=== PATIENT | male | born 1940 | race American Indian/Alaskan Native ===

== ENCOUNTER 2017-03-21 16:43 | Inpatient (IN) | payer MEDICARE, MEDICAID ==
[2017-03-21] MEDS ORDERED: Docusate Sodium 100 MG Cap PO PRN (17:42)
[2017-03-21] MEDS ORDERED: Ondansetron 4 MG/2 ML SDV IVPUSH PRN (17:42)
[2017-03-21] MEDS ORDERED: Acetaminophen 325 MG Tab PO PRN (17:42)
--- NOTE | 2017-03-21 17:52 | PCM.HP ---
H&P History of Present Illness - General Date of Service: 03/21/17 Admit Problem/Dx: Admission Diagnosis/Problem Admission Diagnosis/Problem Cellulitis - History of Present Illness Initial Comments - Free Text/Narative: 77 yo M with h/o htn, dm, dyslipidemia On the day of admission the patient went for a regular follow-up appointment for diabetes. He was noted to have a right lower extremity swelling associated with redness, foul, smelling, draining, superficial wounds. The patient denies fever, no chest pain, shortness of breath. He has been feeling generally weak. His blood sugars are usually in the 200s. - Related Data Allergies/Adverse Reactions: Allergies Allergy/AdvReac Type Severity Reaction Status Date / Time No Known Allergies Allergy Verified 03/21/17 17:31 Home Medications: Home Meds Aspirin [Halfprin] 81 mg PO 1800 03/21/17 [History] Hydrochlorothiazide 50 mg PO BEDTIME 03/21/17 [History] Hydrocortisone [Hydrocortisone 1% Crm] 1 applic TOP DAILY PRN 03/21/17 [History] Lisinopril 40 mg PO 1800 03/21/17 [History] Saxagliptin HCl [Onglyza] 5 mg PO 1800 03/21/17 [History] atorvaSTATin Calcium [Atorvastatin Calcium] 20 mg PO 1800 03/21/17 [History] metFORMIN HCl [Metformin HCl] 1,000 mg PO BID 03/21/17 [History] Past Medical History HEENT History: Reports: Cataract, Glaucoma, Other (See Below) Other HEENT History: presbyopia; astigmatism; hypermetropia; Cardiovascular History: Reports: High Cholesterol, Hypertension Musculoskeletal History: Reports: Osteoarthritis Endocrine/Metabolic History: Reports: Diabetes, Type II, Obesity/BMI 30+ Social & Family History - Family History Family Medical History: Unobtainable - Tobacco Use Smoking Status *Q: Former Smoker Used Tobacco, but Quit: Yes Month Tobacco Last Used: feb 2017 - Caffeine Use Caffeine Use: Reports: Coffee - Recreational Drug Use Recreational Drug Use: No H&P Review of Systems - Review of Systems: Review Of Systems: See Below General: Reports: Chills, Weakness, Fatigue. Denies: Fever Pulmonary: Denies: Shortness of Breath Gastrointestinal: Denies: Abdominal Pain Musculoskeletal: Reports: Leg Pain (Right side) Exam - Exam Exam: See Below - Vital Signs Vital Signs: Last Vital Signs Temp 36.9 C 03/21/17 17:00 Pulse 87 03/21/17 17:00 Resp 20 03/21/17 17:00 BP 124/56 L 03/21/17 17:00 Pulse Ox 100 03/21/17 17:00 Weight: 115.212 kg - Exam Quality Assessment: Other (dirty, poor hygiene) General: Alert, Oriented Neck: Supple Lungs: Clear to Auscultation, Normal Respiratory Effort Cardiovascular: Regular Rate, Regular Rhythm GI/Abdominal Exam: Normal Bowel Sounds, Soft, Non-Tender Back Exam: Normal Inspection Extremities: Pedal Edema (Right lower extremity trace edema), Increased Warmth ( Right lower extremity) Skin: Other (Right lower extremity with diffuse draining superficial ulcerations , large area) - Patient Data Lab Results Last 24 hrs: Laboratory Results - last 24 hr 03/21/17 Range/Units 17:23 POC Glucose 190 H (83-110) mg/dl Laboratory studies were reviewed from [facility] Glucose 232, BUN/creatinine 53, creatinine 2.5, sodium 138, potassium 4.7 Hemoglobin A1c 8.7 wbc 12.3 hemoglobin 11.3, platelets 357 *Q Meaningful Use (ADM) - VTE *Q VTE Criteria *Q: - Stroke *Q Stroke Criteria *Q: - AMI *Q AMI Criteria *Q: - Problem List (1) Cellulitis SNOMED Code(s): 828273345 ICD Code: L03.90 - CELLULITIS, UNSPECIFIED Status: Acute Current Visit: Yes (2) Acute renal failure SNOMED Code(s): 12841346 ICD Code: N17.9 - ACUTE KIDNEY FAILURE, UNSPECIFIED Status: Acute Current Visit: Yes (3) Diabetes SNOMED Code(s): 43874793 ICD Code: E11.9 - TYPE 2 DIABETES MELLITUS WITHOUT COMPLICATIONS Status: Acute Current Visit: Yes (4) Hypertension SNOMED Code(s): 05779585 ICD Code: I10 - ESSENTIAL (PRIMARY) HYPERTENSION Status: Acute Current Visit: Yes Problem List Initiated/Reviewed/Updated: Yes Orders Last 24hrs: Active Orders 24 hr Category Date Time Status Patient Status [ADT] Routine ADT 03/21/17 17:42 Ordered Ambulate [RC] PER UNIT ROUTINE Care 03/21/17 17:43 Ordered Glucose [Blood Glucose Check, Bedside] [RC] QIDACANDBED Care 03/21/17 17:40 Ordered Notify Provider Consults [RC] ASDIRECTED Care 03/21/17 17:39 Ordered Oxygen Therapy [RC] PRN Care 03/21/17 17:42 Ordered Up With Assistance [RC] ASDIRECTED Care 03/21/17 17:42 Ordered VTE/DVT Education [RC] PER UNIT ROUTINE Care 03/21/17 17:42 Ordered Vital Signs [RC] Q4H Care 03/21/17 17:42 Ordered Wound Care [RC] BID Care 03/21/17 17:41 Ordered Consult to Physician [CONS] Routine Cons 03/21/17 17:39 Ordered Consistent Carbohydrate Diet [DIET] Diet 03/21/17 Breakfast Ordered BASIC METABOLIC PANEL,BMP [CHEM] AM Lab 03/22/17 05:15 Ordered CBC WITH AUTO DIFF [HEME] AM Lab 03/22/17 05:15 Ordered CULTURE BLOOD [BC] Stat Lab 03/21/17 17:44 Ordered CULTURE BLOOD [BC] Stat Lab 03/21/17 17:44 Ordered CULTURE WOUND [RM] Stat Lab 03/21/17 17:42 Uncollected Acetaminophen [Tylenol] Med 03/21/17 17:42 Ordered 650 mg PO Q4H PRN Acetaminophen/HYDROcodone [[place] 325-10 MG] Med 03/21/17 17:42 Ordered 1 tab PO Q4H PRN Aspirin [Halfprin] Med 03/21/17 18:00 Ordered 81 mg PO 1800 Docusate Sodium [Colace] Med 03/21/17 17:42 Ordered 100 mg PO BID PRN Heparin Sodium Med 03/21/17 22:00 Ordered 5,000 units SUBCUT Q8HR Insulin Aspart [NovoLOG] Med 03/22/17 08:00 Ordered See Protocol SUBCUT TIDAC Ondansetron [Zofran] Med 03/21/17 17:42 Ordered 4 mg IVPUSH Q6H PRN Piperacillin/Tazobactam [Zosyn] 2.25 gm Med 03/21/17 17:45 Ordered Sodium Chloride 0.9% [Normal Saline] 50 ml IV Q6H Vancomycin Pharmacy to Dose [Pharmacy to Dose - Med 03/21/17 17:45 Ordered Vancomycin] 1 dose .XX ASDIRECTED Zolpidem [Ambien] Med 03/21/17 17:42 Ordered 5 mg PO BEDTIME PRN atorvaSTATin [Lipitor] Med 03/21/17 18:00 Ordered 20 mg PO 1800 Blood Culture x2 Reflex Set [OM.PC] Stat Oth 03/21/17 17:42 Ordered Resuscitation Status Routine Resus Stat 03/21/17 17:42 Ordered Medication Orders Acetaminophen (Tylenol) 650 mg PO Q4H PRN PRN Reason: Pain (Mild 1-3)/fever Hydrocodone Bitart/Acetaminophen ([place] 325-10 Mg) 1 tab PO Q4H PRN PRN Reason: Pain (moderate 4-6) Aspirin (Halfprin) 81 mg PO 1800 [facility] Atorvastatin Calcium (Lipitor) 20 mg PO 1800 [facility] Piperacillin Sod/Tazobactam (Sod 2.25 gm/ Sodium Chloride) 50 mls @ 100 mls/hr IV Q6H [facility] Insulin Aspart (Novolog) 0 unit SUBCUT TIDAC [facility] PRN Reason: Protocol Vancomycin HCl (Pharmacy To Dose - Vancomycin) 1 dose .XX ASDIRECTED [facility] Assessment/Plan Comment:: The patient is a 77-year-old gentleman who has a history of diabetes, hypertension, dyslipidemia The patient presented with foul-smelling right foot ulcers, redness, swelling. 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 Follow electrolytes and renal function #3 diabetes Due to poor renal function will hold metformin Follow blood sugars use supplemental insulin as needed Start Levemir insulin Adjust depending on the blood sugars #4 hypertension For now hold CAYLA inhibitor and hydrochlorothiazide given the renal failure Follow blood pressures and start medications and adjust as needed #5 DVT prophylaxis with subcutaneous heparin
[2017-03-21] MEDS: Acetaminophen/HYDROcodone 325-10 MG Tab PO PRN ×2 (18:19→22:28)
[2017-03-21] MEDS: Sodium Chloride 0.9% 1,000 ML IV SCH (18:21)
[2017-03-21] MEDS: Piperacillin/Tazobactam 2.25 GM in Sodium Chloride 0.9% 50 ML IV SCH ×2 (18:34→23:41)
[2017-03-21] MEDS: Insulin Aspart 100 Units/ML 3 ML Pen SUBCUT SCH (18:38)
[2017-03-21] MEDS ORDERED: Vancomycin 1.75 GM in Sodium Chloride 0.9% 500 ML IV ONE (20:00)
[2017-03-21] MEDS: Aspirin 81 MG Tab.EC PO SCH (20:33)
[2017-03-21] MEDS: atorvaSTATin 20 MG Tab PO SCH (20:33)
[2017-03-21] MEDS: Heparin Sodium 5,000 Units/ML Vial SUBCUT SCH (22:13)
[2017-03-21] MEDS: Zolpidem 5 MG Tab PO PRN (22:14)
[2017-03-22] MEDS: Piperacillin/Tazobactam 2.25 GM in Sodium Chloride 0.9% 50 ML IV SCH ×4 (05:36→23:23)
[2017-03-22] MEDS: Heparin Sodium 5,000 Units/ML Vial SUBCUT SCH ×3 (05:40→21:08)
[2017-03-22 06:57] LABS: ANION GAP 11.2
[2017-03-22] MEDS: Insulin Aspart 100 Units/ML 3 ML Pen SUBCUT SCH ×3 (08:40→17:22)
[2017-03-22] MEDS: Vancomycin 1.75 GM in Sodium Chloride 0.9% 500 ML IV SCH ×2 (08:59→21:08)
[2017-03-22] MEDS: Sodium Chloride 0.9% 1,000 ML IV SCH (11:06)
--- NOTE | 2017-03-22 12:45 | PCM.PN ---
- General Info Date of Service: 03/22/17 Admission Dx/Problem (Free Text): Admission Diagnosis/Problem Admission Diagnosis/Problem Cellulitis Subjective Update: Remained stable overnight. Only had low-grade fever. The leg is looking better with the dressing changes. Has moderate right leg pain that has been chronic. Functional Status: Reports: Tolerating Diet - Review of Systems General: Reports: Fever Pulmonary: Denies: Shortness of Breath Cardiovascular: Denies: Chest Pain Gastrointestinal: Denies: Abdominal Pain - Patient Data Vitals - Most Recent: Last Vital Signs Temp 37.6 C 03/22/17 11:06 Pulse 82 03/22/17 11:06 Resp 20 03/22/17 11:06 BP 134/55 L 03/22/17 11:06 Pulse Ox 100 03/22/17 11:06 Weight - Most Recent: 115.212 kg I&O - Last 24 Hours: Intake & Output 03/21/17 03/22/17 03/22/17 22:59 06:59 14:59 Intake Total 300 1454 727 Output Total 440 750 500 Balance -140 704 227 Lab Results Last 24 Hours: Laboratory Results - last 24 hr 03/21/17 03/21/17 03/22/17 Range/Units 17:23 21:17 06:15 WBC 13.2 H (5.0-10.0) 10^3/uL RBC 3.51 L (4.6-6.2) 10^6/uL Hgb 10.3 L (14.0-18.0) g/dL Hct 31.6 L (40.0-54.0) % MCV 90.0 (80-100) fL MCH 29.3 (27.0-34.0) pg MCHC 32.6 L (33.0-35.0) g/dL Plt Count 299 (150-450) 10^3/uL Neut % (Auto) 71.0 (42.2-75.2) % Lymph % (Auto) 17.5 L (20.5-50.1) % [place] % (Auto) 8.6 H (2-8) % Eos % (Auto) 2.7 (1.0-3.0) % Baso % (Auto) 0.2 (0.0-1.0) % Sodium (135-145) mmol/L Potassium (3.6-5.0) mmol/L Chloride (101-111) mmol/L Carbon Dioxide (21.0-31.0) mmol/L Anion Gap BUN (7-18) mg/dL Creatinine (0.6-1.3) mg/dL Est Cr Clr Drug Dosing mL/min Estimated GFR (MDRD) Glucose (74-105) mg/dL POC Glucose 190 H 191 H (83-110) mg/dl Calcium (8.4-10.2) mg/dl 03/22/17 03/22/17 03/22/17 Range/Units 06:15 07:49 11:01 WBC (5.0-10.0) 10^3/uL RBC (4.6-6.2) 10^6/uL Hgb (14.0-18.0) g/dL Hct (40.0-54.0) % MCV (80-100) fL MCH (27.0-34.0) pg MCHC (33.0-35.0) g/dL Plt Count (150-450) 10^3/uL Neut % (Auto) (42.2-75.2) % Lymph % (Auto) (20.5-50.1) % [place] % (Auto) (2-8) % Eos % (Auto) (1.0-3.0) % Baso % (Auto) (0.0-1.0) % Sodium 138 (135-145) mmol/L Potassium 4.2 (3.6-5.0) mmol/L Chloride 106 (101-111) mmol/L Carbon Dioxide 25.0 (21.0-31.0) mmol/L Anion Gap 11.2 BUN 39 H (7-18) mg/dL Creatinine 1.5 H (0.6-1.3) mg/dL Est Cr Clr Drug Dosing 54.16 mL/min Estimated GFR (MDRD) 46 Glucose 177 H (74-105) mg/dL POC Glucose 173 H 234 H (83-110) mg/dl Calcium 8.6 (8.4-10.2) mg/dl Med Orders - Current: Current Medications Acetaminophen (Tylenol) 650 mg PO Q4H PRN PRN Reason: Pain (Mild 1-3)/fever Hydrocodone Bitart/Acetaminophen ([place] 325-10 Mg) 1 tab PO Q4H PRN PRN Reason: Pain (moderate 4-6) Last Admin: 03/21/17 22:28 Dose: 1 tab Aspirin (Halfprin) 81 mg PO 1800 [facility] Last Admin: 03/21/17 20:33 Dose: 81 mg Atorvastatin Calcium (Lipitor) 20 mg PO 1800 [facility] Last Admin: 03/21/17 20:33 Dose: 20 mg Docusate Sodium (Colace) 100 mg PO BID PRN PRN Reason: Constipation Heparin Sodium (Porcine) (Heparin Sodium) 5,000 units SUBCUT Q8HR [facility] Last Admin: 03/22/17 05:40 Dose: 5,000 units Piperacillin Sod/Tazobactam (Sod 2.25 gm/ Sodium Chloride) 50 mls @ 100 mls/hr IV Q6H [facility] Last Infusion: 03/22/17 12:34 Dose: Infused Sodium Chloride (Normal Saline) 1,000 mls @ 75 mls/hr IV ASDIRECTED [facility] Last Admin: 03/22/17 11:06 Dose: 75 mls/hr Vancomycin HCl 1.75 gm/ Sodium (Chloride) 500 mls @ 250 mls/hr IV Q12H [facility] Last Admin: 03/22/17 08:59 Dose: 250 mls/hr Insulin Aspart (Novolog) 0 unit SUBCUT TIDAC [facility] PRN Reason: Protocol Last Admin: 03/22/17 12:25 Dose: 4 units Ondansetron HCl (Zofran) 4 mg IVPUSH Q6H PRN PRN Reason: Nausea/Vomiting Vancomycin HCl (Pharmacy To Dose - Vancomycin) 1 dose .XX ASDIRECTED [facility] Zolpidem Tartrate (Ambien) 5 mg PO BEDTIME PRN PRN Reason: Sleep Last Admin: 03/21/17 22:14 Dose: 5 mg Discontinued Medications Vancomycin HCl 1.75 gm/ Sodium (Chloride) 500 mls @ 250 mls/hr IV ONETIME ONE Stop: 03/21/17 21:59 Last Admin: 03/21/17 20:30 Dose: 250 mls/hr - Exam General: Alert, Oriented Neck: Supple Lungs: Clear to Auscultation, Normal Respiratory Effort GI/Abdominal Exam: Normal Bowel Sounds, Soft, Non-Tender Extremities: Pedal Edema ([place] right lower extremity) Skin: Warm, Other (Right lower extremity erythema and superficial ulcerations) - Problem List & Annotations (1) Cellulitis SNOMED Code(s): 653296194 Code(s): L03.90 - CELLULITIS, UNSPECIFIED Status: Acute Current Visit: Yes (2) Acute renal failure SNOMED Code(s): 17602348 Code(s): N17.9 - ACUTE KIDNEY FAILURE, UNSPECIFIED Status: Acute Current Visit: Yes (3) Diabetes SNOMED Code(s): 47983923 Code(s): E11.9 - TYPE 2 DIABETES MELLITUS WITHOUT COMPLICATIONS Status: Acute Current Visit: Yes (4) Hypertension SNOMED Code(s): 92879024 Code(s): I10 - ESSENTIAL (PRIMARY) HYPERTENSION Status: Acute Current Visit: Yes - Problem List Review Problem List Initiated/Reviewed/Updated: Yes - My Orders Last 24 Hours: My Active Orders 03/21/17 17:39 Notify Provider Consults [RC] Consult to Physician [CONS] Routine 03/21/17 17:40 Glucose [Blood Glucose Check, Bedside] [RC] QIDACANDBED 03/21/17 17:41 Wound Care [RC] 03/21/17 17:42 Patient Status [ADT] Routine Oxygen Therapy [RC] PRN Up With Assistance [RC] ASDIRECTED VTE/DVT Education [RC] PER UNIT ROUTINE Vital Signs [RC] Q4H Acetaminophen [Tylenol] 650 mg PO Q4H PRN Acetaminophen/HYDROcodone [[place] 325-10 MG] 1 tab PO Q4H PRN Docusate Sodium [Colace] 100 mg PO BID PRN Ondansetron [Zofran] 4 mg IVPUSH Q6H PRN Zolpidem [Ambien] 5 mg PO BEDTIME PRN Blood Culture x2 Reflex Set [OM.PC] Stat Resuscitation Status Routine 03/21/17 17:43 Ambulate [RC] PER UNIT ROUTINE 03/21/17 17:45 Insulin Aspart [NovoLOG] See Protocol SUBCUT TIDAC Vancomycin Pharmacy to Dose [Pharmacy to Dose - Vancomycin] 1 dose .XX ASDIRECTED 03/21/17 18:00 Aspirin [Halfprin] 81 mg PO 1800 Piperacillin/Tazobactam [Zosyn] 2.25 gm Sodium Chloride 0.9% [Normal Saline] 50 ml IV Q6H atorvaSTATin [Lipitor] 20 mg PO 1800 03/21/17 18:10 CULTURE BLOOD [BC] Stat 03/21/17 18:14 CULTURE BLOOD [BC] Stat 03/21/17 18:15 Sodium Chloride 0.9% [Normal Saline] 1,000 ml IV ASDIRECTED 03/21/17 18:30 CULTURE WOUND [RM] Stat 03/21/17 22:00 Heparin Sodium 5,000 units SUBCUT Q8HR 03/22/17 09:00 Vancomycin 1.75 gm Sodium Chloride 0.9% [Normal Saline] 500 ml IV Q12H 03/22/17 11:27 OT Evaluation and Treatment [CONS] Routine PT Evaluation and Treatment [CONS] Routine - Plan Plan:: The patient is a 77-year-old gentleman who has a history of diabetes, hypertension, dyslipidemia The patient presented with foul-smelling right foot ulcers, redness, swelling. 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 Follow electrolytes and renal function #3 diabetes Due to poor renal function will hold metformin Follow blood sugars use supplemental insulin as needed Started Levemir insulin Adjust depending on the blood sugars #4 hypertension For now hold CAYLA inhibitor and hydrochlorothiazide given the renal failure Follow blood pressures and start medications and adjust as needed #5 DVT prophylaxis with subcutaneous heparin
--- NOTE | 2017-03-22 16:50 | CR ---
Clinical history: 77-year-old diabetic male with right lower extremity ulcer (distally and laterally) . Osteomyelitis? 4 views of the right lower extremity (AP/lateral) reveal generally homogeneous, good bone density for age. *Soft tissue swelling laterally with subcutaneous emphysema but no evidence of inflammatory per iostitis or osteomyelitis of the distal fibula. No long bone fractures, foreign bodies of fracture or disc location of the right knee/ankle joints. ( chronic arthritic changes) Arterial vascular calcifications typical of diabetic. Large heel spurs identified respectively at the insertion of the plantar aponeurosis and Achilles ten don on the os calcis.
--- NOTE | 2017-03-22 17:16 | PCM.CONS ---
H&P History of Present Illness - General Date of Service: 03/22/17 Admit Problem/Dx: Admission Diagnosis/Problem Admission Diagnosis/Problem Cellulitis Source of Information: Patient History Limitations: Reports: No Limitations - History of Present Illness Initial Comments - Free Text/Narative: 77 y/o DM male admitted for right foot/lower leg ulcerations with cellulitis. Patient states he hit the ankle area on something last month and it broke open the skin, since that time he has noticed increased redness and also drainage to the right foot/ankle area. He has not been putting any dressings on the area, but has been using lotion every day, this has been since before . He noticed worsening of the redness and also odor, pain with walking. Right Ankle Pain Score (Numeric/FACES): 4 - Related Data Allergies/Adverse Reactions: Allergies Allergy/AdvReac Type Severity Reaction Status Date / Time No Known Allergies Allergy Verified 03/21/17 17:31 Home Medications: Home Meds Aspirin [Halfprin] 81 mg PO 1800 03/21/17 [History] Hydrochlorothiazide 50 mg PO BEDTIME 03/21/17 [History] Hydrocortisone [Hydrocortisone 1% Crm] 1 applic TOP DAILY PRN 03/21/17 [History] Lisinopril 40 mg PO 1800 03/21/17 [History] Saxagliptin HCl [Onglyza] 5 mg PO 1800 03/21/17 [History] atorvaSTATin Calcium [Atorvastatin Calcium] 20 mg PO 1800 03/21/17 [History] metFORMIN HCl [Metformin HCl] 1,000 mg PO BID 03/21/17 [History] Past Medical History HEENT History: Reports: Cataract, Glaucoma, Other (See Below) Other HEENT History: presbyopia; astigmatism; hypermetropia; Cardiovascular History: Reports: High Cholesterol, Hypertension Musculoskeletal History: Reports: Osteoarthritis Endocrine/Metabolic History: Reports: Diabetes, Type II, Obesity/BMI 30+ Social & Family History - Family History Family Medical History: Unobtainable - Tobacco Use Smoking Status *Q: Former Smoker Used Tobacco, but Quit: Yes Month Tobacco Last Used: feb 2017 - Caffeine Use Caffeine Use: Reports: Coffee - Recreational Drug Use Recreational Drug Use: No H&P Review of Systems - Review of Systems: Review Of Systems: See Below General: Reports: No Symptoms Exam - Exam Exam: See Below - Vital Signs Vital Signs: Last Vital Signs Temp 37.3 C 03/22/17 14:22 Pulse 80 03/22/17 14:22 Resp 20 03/22/17 14:22 BP 138/71 03/22/17 14:22 Pulse Ox 98 03/22/17 14:22 Weight: 115.212 kg - Exam General: Alert, Oriented Physical Exam Comments:: Right lower extremity: multiple areas of superficial ulcerations present with a large area of boggy tissue at lateral malleolus area and extending proximally and posteriorly, upon pressure to the area there was a large amount of purulent drainage that was expressed, the necrotic/fibrotic tissue overlying this area was debrided and upon debridement there was healthy appearing tissue at the base , however also an area that tracked proximally and into the kagers triangle area that did have purulent drainage expressed. The debrided area measures 6 x 4 cm, the edges area well demarcated with dried necrotic tissue which did not appear wet today, there is also some dry necrotic tissue that extends up the lateral lower leg. No other areas of boggy tissue or soft tissue crepitus was palpated. Erythema was present to ankle and lower leg that was marked out today. - Patient Data Lab Results Last 24 hrs: Laboratory Results - last 24 hr 03/21/17 03/21/17 03/22/17 Range/Units 17:23 21:17 06:15 WBC 13.2 H (5.0-10.0) 10^3/uL RBC 3.51 L (4.6-6.2) 10^6/uL Hgb 10.3 L (14.0-18.0) g/dL Hct 31.6 L (40.0-54.0) % MCV 90.0 (80-100) fL MCH 29.3 (27.0-34.0) pg MCHC 32.6 L (33.0-35.0) g/dL Plt Count 299 (150-450) 10^3/uL Neut % (Auto) 71.0 (42.2-75.2) % Lymph % (Auto) 17.5 L (20.5-50.1) % [place] % (Auto) 8.6 H (2-8) % Eos % (Auto) 2.7 (1.0-3.0) % Baso % (Auto) 0.2 (0.0-1.0) % Sodium (135-145) mmol/L Potassium (3.6-5.0) mmol/L Chloride (101-111) mmol/L Carbon Dioxide (21.0-31.0) mmol/L Anion Gap BUN (7-18) mg/dL Creatinine (0.6-1.3) mg/dL Est Cr Clr Drug Dosing mL/min Estimated GFR (MDRD) Glucose (74-105) mg/dL POC Glucose 190 H 191 H (83-110) mg/dl Calcium (8.4-10.2) mg/dl 03/22/17 03/22/17 03/22/17 Range/Units 06:15 07:49 11:01 WBC (5.0-10.0) 10^3/uL RBC (4.6-6.2) 10^6/uL Hgb (14.0-18.0) g/dL Hct (40.0-54.0) % MCV (80-100) fL MCH (27.0-34.0) pg MCHC (33.0-35.0) g/dL Plt Count (150-450) 10^3/uL Neut % (Auto) (42.2-75.2) % Lymph % (Auto) (20.5-50.1) % [place] % (Auto) (2-8) % Eos % (Auto) (1.0-3.0) % Baso % (Auto) (0.0-1.0) % Sodium 138 (135-145) mmol/L Potassium 4.2 (3.6-5.0) mmol/L Chloride 106 (101-111) mmol/L Carbon Dioxide 25.0 (21.0-31.0) mmol/L Anion Gap 11.2 BUN 39 H (7-18) mg/dL Creatinine 1.5 H (0.6-1.3) mg/dL Est Cr Clr Drug Dosing 54.16 mL/min Estimated GFR (MDRD) 46 Glucose 177 H (74-105) mg/dL POC Glucose 173 H 234 H (83-110) mg/dl Calcium 8.6 (8.4-10.2) mg/dl 03/22/17 Range/Units 16:48 WBC (5.0-10.0) 10^3/uL RBC (4.6-6.2) 10^6/uL Hgb (14.0-18.0) g/dL Hct (40.0-54.0) % MCV (80-100) fL MCH (27.0-34.0) pg MCHC (33.0-35.0) g/dL Plt Count (150-450) 10^3/uL Neut % (Auto) (42.2-75.2) % Lymph % (Auto) (20.5-50.1) % [place] % (Auto) (2-8) % Eos % (Auto) (1.0-3.0) % Baso % (Auto) (0.0-1.0) % Sodium (135-145) mmol/L Potassium (3.6-5.0) mmol/L Chloride (101-111) mmol/L Carbon Dioxide (21.0-31.0) mmol/L Anion Gap BUN (7-18) mg/dL Creatinine (0.6-1.3) mg/dL Est Cr Clr Drug Dosing mL/min Estimated GFR (MDRD) Glucose (74-105) mg/dL POC Glucose 224 H (83-110) mg/dl Calcium (8.4-10.2) mg/dl Result Diagrams: 03/22/17 06:15 03/22/17 06:15 Imaging Impressions Last 24 hrs: Xrays of right LE today reveals wound at lateral and posterior ankle which was packed open, no evidence of gas in soft tissues, inflammatory periostitis, osteo. Calcified vessels present. Consult PN Assessment/Plan Problem List Initiated/Reviewed/Updated: Yes Plan: 77 y/o DM male with right LE ulcerations and cellulitis. Today I cleansed the right ankle/leg throughly with hibacleanse scrub, I then debrided the wet, necrotic appearing tissue to lateral ankle that had underling purulent drainage , all loose, wet, necrotic tissue was debrided today and irrigated clean to reveal nice granular tissue underlying. There was an area that tracked proximal/ posterior that was also debrided and irrigated with copious amounts of sterile saline until no purulent drainage was able to be expressed, this was then packed open with iodoform gauze. Silvasorb with xeroform dressing applied to granular areas, betadine to dry demarcated areas, gauze and kerlex dressing. He is on IV vanc and zosyn until cultures return. Xrays performed tonight to ensure no gas in soft tissues. I also marked out the area of erythema with marking pen tonight. I will check him again in the AM, if no improvement then may send him to GF, otherwise will plan on irrigation again tomorrow with packing and wound care. WB to Right foot as tolerated.
[2017-03-22] MEDS: atorvaSTATin 20 MG Tab PO SCH (17:22)
[2017-03-22] MEDS: Aspirin 81 MG Tab.EC PO SCH (17:22)
[2017-03-22] MEDS: Zolpidem 5 MG Tab PO PRN (21:08)
[2017-03-22] MEDS: Acetaminophen/HYDROcodone 325-10 MG Tab PO PRN (21:08)
[2017-03-23] MEDS: Heparin Sodium 5,000 Units/ML Vial SUBCUT SCH (05:38)
[2017-03-23] MEDS: Piperacillin/Tazobactam 2.25 GM in Sodium Chloride 0.9% 50 ML IV SCH ×2 (05:39→13:43)
[2017-03-23 09:15] LABS: CHLORIDE,CL 105 mmol/L (101-111); SODIUM,NA 137 mmol/L (135-145)
[2017-03-23] MEDS: Insulin Aspart 100 Units/ML 3 ML Pen SUBCUT SCH ×2 (09:29→12:39)
--- NOTE | 2017-03-23 09:40 | PCM.DCSUM1 ---
Discharge Summary - Hospital Course Free Text/Narrative:: The patient is a 77-year-old gentleman who has a history of diabetes, hypertension, dyslipidemia The patient presented with foul-smelling right foot ulcers, redness, swelling. 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 Kolb She did incision and the bride went, packing. She felt that the wound and abscess collection is tracking higher than what podiatry can work on. She recommended orthopedic surgery consult I have contacted [facility] in [place] and arranged transfer #2 acute renal failure Creatinine on admission was 1.5 Improved with IV fluids Apparently his last GFR was around 57-60 in February Continue to hold the CAYLA inhibitor, metformin Was treated with IV fluids, treat the infection. Follow electrolytes and renal function #3 diabetes Due to poor renal function will hold metformin Follow blood sugars use supplemental insulin as needed Started Levemir insulin Adjust depending on the blood sugars #4 hypertension For now hold CAYLA inhibitor and hydrochlorothiazide given the renal failure Follow blood pressures and start medications and adjust as needed #5 DVT prophylaxis with subcutaneous heparin - Discharge Data Discharge Date: 03/23/17 Discharge Disposition: DC/Tfer to Acute Hospital 02 Condition: Good - Discharge Diagnosis/Problem(s) (1) Cellulitis SNOMED Code(s): 215037404 ICD Code: L03.90 - CELLULITIS, UNSPECIFIED Status: Acute Current Visit: Yes (2) Acute renal failure SNOMED Code(s): 93405702 ICD Code: N17.9 - ACUTE KIDNEY FAILURE, UNSPECIFIED Status: Acute Current Visit: Yes (3) Diabetes SNOMED Code(s): 03200277 ICD Code: E11.9 - TYPE 2 DIABETES MELLITUS WITHOUT COMPLICATIONS Status: Acute Current Visit: Yes (4) Hypertension SNOMED Code(s): 85956778 ICD Code: I10 - ESSENTIAL (PRIMARY) HYPERTENSION Status: Acute Current Visit: Yes - Patient Summary/Data Consults: Consultations 03/21/17 17:39 Consult to Physician [CONS] Routine 03/22/17 11:27 OT Evaluation and Treatment [CONS] Routine PT Evaluation and Treatment [CONS] Routine - Patient Instructions Diet: Diabetic Diet Activity: As Tolerated - Discharge Plan Home Medications: Home Meds Aspirin [Halfprin] 81 mg PO 1800 03/21/17 [History] Saxagliptin HCl [Onglyza] 5 mg PO 1800 03/21/17 [History] atorvaSTATin Calcium [Atorvastatin Calcium] 20 mg PO 1800 03/21/17 [History] Acetaminophen [Tylenol] 650 mg PO Q4H PRN tablet 03/23/17 [Rx] Docusate Sodium [Colace] 100 mg PO BID PRN cap 03/23/17 [Rx] Heparin Sodium 5,000 units SUBCUT Q8HR vial 03/23/17 [Rx] Insulin Aspart [NovoLOG] 0 unit SUBCUT TIDAC pen 03/23/17 [Rx] Vancomycin Pharmacy to Dose [Pharmacy to Dose - Vancomycin] 1 dose .XX ASDIRECTED each 03/23/17 [Rx] - Discharge Summary/Plan Comment DC Time >30 min.: Yes (Arranging transfer and discussion with Dr. Kolb) - General Info Date of Service: 03/23/17 Subjective Update: Remained stable overnight. Continue to have low-grade fever. - Review of Systems General: Reports: Fever Pulmonary: Denies: Shortness of Breath Cardiovascular: Denies: Chest Pain Gastrointestinal: Denies: Abdominal Pain Neurological: Denies: Confusion - Patient Data Vitals - Most Recent: Last Vital Signs Temp 38.1 C 03/22/17 19:00 Pulse 96 03/22/17 19:00 Resp 18 03/22/17 19:00 BP 115/61 03/22/17 19:00 Pulse Ox 94 L 03/22/17 19:00 Weight - Most Recent: 115.212 kg I&O - Last 24 hours: Intake & Output 03/22/17 03/23/17 03/23/17 22:59 06:59 14:59 Intake Total 475 Output Total 400 600 Balance 75 -600 Lab Results - Last 24 hrs: Laboratory Results - last 24 hr 03/22/17 03/22/17 03/22/17 Range/Units 11:01 16:48 21:32 WBC (5.0-10.0) 10^3/uL RBC (4.6-6.2) 10^6/uL Hgb (14.0-18.0) g/dL Hct (40.0-54.0) % MCV (80-100) fL MCH (27.0-34.0) pg MCHC (33.0-35.0) g/dL Plt Count (150-450) 10^3/uL Neut % (Auto) (42.2-75.2) % Lymph % (Auto) (20.5-50.1) % [place] % (Auto) (2-8) % Eos % (Auto) (1.0-3.0) % Baso % (Auto) (0.0-1.0) % Sodium (135-145) mmol/L Potassium (3.6-5.0) mmol/L Chloride (101-111) mmol/L Carbon Dioxide (21.0-31.0) mmol/L Anion Gap BUN (7-18) mg/dL Creatinine (0.6-1.3) mg/dL Est Cr Clr Drug Dosing mL/min Estimated GFR (MDRD) Glucose (74-105) mg/dL POC Glucose 234 H 224 H 210 H (83-110) mg/dl Calcium (8.4-10.2) mg/dl Vancomycin Trough (10-15) ug/ml 03/23/17 03/23/17 03/23/17 Range/Units 08:17 08:28 08:28 WBC 12.6 H (5.0-10.0) 10^3/uL RBC 3.33 L (4.6-6.2) 10^6/uL Hgb 9.6 L (14.0-18.0) g/dL Hct 30.1 L (40.0-54.0) % MCV 90.4 (80-100) fL MCH 28.8 (27.0-34.0) pg MCHC 31.9 L (33.0-35.0) g/dL Plt Count 285 (150-450) 10^3/uL Neut % (Auto) 65.6 (42.2-75.2) % Lymph % (Auto) 22.8 (20.5-50.1) % [place] % (Auto) 8.9 H (2-8) % Eos % (Auto) 2.5 (1.0-3.0) % Baso % (Auto) 0.2 (0.0-1.0) % Sodium (135-145) mmol/L Potassium (3.6-5.0) mmol/L Chloride (101-111) mmol/L Carbon Dioxide (21.0-31.0) mmol/L Anion Gap BUN (7-18) mg/dL Creatinine (0.6-1.3) mg/dL Est Cr Clr Drug Dosing mL/min Estimated GFR (MDRD) Glucose (74-105) mg/dL POC Glucose 161 H (83-110) mg/dl Calcium (8.4-10.2) mg/dl Vancomycin Trough 23.2 H (10-15) ug/ml 03/23/17 Range/Units 08:28 WBC (5.0-10.0) 10^3/uL RBC (4.6-6.2) 10^6/uL Hgb (14.0-18.0) g/dL Hct (40.0-54.0) % MCV (80-100) fL MCH (27.0-34.0) pg MCHC (33.0-35.0) g/dL Plt Count (150-450) 10^3/uL Neut % (Auto) (42.2-75.2) % Lymph % (Auto) (20.5-50.1) % [place] % (Auto) (2-8) % Eos % (Auto) (1.0-3.0) % Baso % (Auto) (0.0-1.0) % Sodium 137 (135-145) mmol/L Potassium 4.0 (3.6-5.0) mmol/L Chloride 105 (101-111) mmol/L Carbon Dioxide 24.0 (21.0-31.0) mmol/L Anion Gap 12.0 BUN 21 H (7-18) mg/dL Creatinine 1.1 (0.6-1.3) mg/dL Est Cr Clr Drug Dosing 73.86 mL/min Estimated GFR (MDRD) > 60 Glucose 158 H (74-105) mg/dL POC Glucose (83-110) mg/dl Calcium 8.5 (8.4-10.2) mg/dl Vancomycin Trough (10-15) ug/ml MAI Results - Last 24 hrs: Microbiology 03/21/17 18:30 Wound Culture - Preliminary Ankle, Right 03/21/17 18:14 Aerobic Blood Culture - Preliminary Blood - Venous - Lab Draw NO GROWTH AFTER 1 DAY Anaerobic Blood Culture - Preliminary NO GROWTH AFTER 1 DAY 03/21/17 18:10 Aerobic Blood Culture - Preliminary Blood - Venous NO GROWTH AFTER 1 DAY Anaerobic Blood Culture - Preliminary NO GROWTH AFTER 1 DAY Med Orders - Current: Current Medications Acetaminophen (Tylenol) 650 mg PO Q4H PRN PRN Reason: Pain (Mild 1-3)/fever Hydrocodone Bitart/Acetaminophen ([place] 325-10 Mg) 1 tab PO Q4H PRN PRN Reason: Pain (moderate 4-6) Last Admin: 03/22/17 21:08 Dose: 1 tab Aspirin (Halfprin) 81 mg PO 1800 [facility] Last Admin: 03/22/17 17:22 Dose: 81 mg Atorvastatin Calcium (Lipitor) 20 mg PO 1800 [facility] Last Admin: 03/22/17 17:22 Dose: 20 mg Docusate Sodium (Colace) 100 mg PO BID PRN PRN Reason: Constipation Heparin Sodium (Porcine) (Heparin Sodium) 5,000 units SUBCUT Q8HR [facility] Last Admin: 03/23/17 05:38 Dose: 5,000 units Piperacillin Sod/Tazobactam (Sod 2.25 gm/ Sodium Chloride) 50 mls @ 100 mls/hr IV Q6H [facility] Last Infusion: 03/23/17 06:26 Dose: Infused Vancomycin HCl 1.75 gm/ Sodium (Chloride) 500 mls @ 250 mls/hr IV Q12H [facility] Last Admin: 03/22/17 21:08 Dose: 250 mls/hr Insulin Aspart (Novolog) 0 unit SUBCUT TIDAC [facility] PRN Reason: Protocol Last Admin: 03/23/17 09:29 Dose: 2 units Ondansetron HCl (Zofran) 4 mg IVPUSH Q6H PRN PRN Reason: Nausea/Vomiting Vancomycin HCl (Pharmacy To Dose - Vancomycin) 1 dose .XX ASDIRECTED [facility] Zolpidem Tartrate (Ambien) 5 mg PO BEDTIME PRN PRN Reason: Sleep Last Admin: 03/22/17 21:08 Dose: 5 mg Discontinued Medications Vancomycin HCl 1.75 gm/ Sodium (Chloride) 500 mls @ 250 mls/hr IV ONETIME ONE Stop: 03/21/17 21:59 Last Admin: 03/21/17 20:30 Dose: 250 mls/hr Sodium Chloride (Normal Saline) 1,000 mls @ 75 mls/hr IV ASDIRECTED [facility] Last Admin: 03/22/17 11:06 Dose: 75 mls/hr - Exam General: Reports: Alert, Oriented Neck: Reports: Supple Lungs: Reports: Clear to Auscultation Cardiovascular: Reports: Regular Rate, Regular Rhythm Extremities: No Pedal Edema Skin: Reports: Other (Right lower extremity dressing) *Q Meaningful Use (DIS) - VTE *Q VTE Criteria *Q: - Stroke *Q Stroke Criteria *Q: - AMI *Q AMI Criteria *Q:
--- NOTE | 2017-03-23 10:13 | PCM.CONSN ---
- General Info Date of Service: 03/23/17 Admission Dx/Problem (Free Text): Admission Diagnosis/Problem Admission Diagnosis/Problem Cellulitis Subjective Update: 77 y/o DM male with right ankle/lower leg ulcers with cellulitis. I saw him last night, did debridement at bedside and wash-out. He states he did sleep well. Has had this wound since before and recently noticed increased pain, redness, and drainage. He has kept dressing from yesterday intact. Reports right ankle/leg pain that is unchanged since yesterday. - Review of Systems General: Reports: Fever, Chills - Patient Data Vitals - Most Recent: Last Vital Signs Temp 38.1 C 03/22/17 19:00 Pulse 96 03/22/17 19:00 Resp 18 03/22/17 19:00 BP 115/61 03/22/17 19:00 Pulse Ox 94 L 03/22/17 19:00 Weight - Most Recent: 115.212 kg I&O - Last 24 Hours: Intake & Output 03/22/17 03/23/17 03/23/17 22:59 06:59 14:59 Intake Total 475 Output Total 400 600 Balance 75 -600 Lab Results Last 24 Hours: Laboratory Results - last 24 hr 03/22/17 03/22/17 03/22/17 Range/Units 11:01 16:48 21:32 WBC (5.0-10.0) 10^3/uL RBC (4.6-6.2) 10^6/uL Hgb (14.0-18.0) g/dL Hct (40.0-54.0) % MCV (80-100) fL MCH (27.0-34.0) pg MCHC (33.0-35.0) g/dL Plt Count (150-450) 10^3/uL Neut % (Auto) (42.2-75.2) % Lymph % (Auto) (20.5-50.1) % [place] % (Auto) (2-8) % Eos % (Auto) (1.0-3.0) % Baso % (Auto) (0.0-1.0) % Sodium (135-145) mmol/L Potassium (3.6-5.0) mmol/L Chloride (101-111) mmol/L Carbon Dioxide (21.0-31.0) mmol/L Anion Gap BUN (7-18) mg/dL Creatinine (0.6-1.3) mg/dL Est Cr Clr Drug Dosing mL/min Estimated GFR (MDRD) Glucose (74-105) mg/dL POC Glucose 234 H 224 H 210 H (83-110) mg/dl Calcium (8.4-10.2) mg/dl Vancomycin Trough (10-15) ug/ml 03/23/17 03/23/17 03/23/17 Range/Units 08:17 08:28 08:28 WBC 12.6 H (5.0-10.0) 10^3/uL RBC 3.33 L (4.6-6.2) 10^6/uL Hgb 9.6 L (14.0-18.0) g/dL Hct 30.1 L (40.0-54.0) % MCV 90.4 (80-100) fL MCH 28.8 (27.0-34.0) pg MCHC 31.9 L (33.0-35.0) g/dL Plt Count 285 (150-450) 10^3/uL Neut % (Auto) 65.6 (42.2-75.2) % Lymph % (Auto) 22.8 (20.5-50.1) % [place] % (Auto) 8.9 H (2-8) % Eos % (Auto) 2.5 (1.0-3.0) % Baso % (Auto) 0.2 (0.0-1.0) % Sodium (135-145) mmol/L Potassium (3.6-5.0) mmol/L Chloride (101-111) mmol/L Carbon Dioxide (21.0-31.0) mmol/L Anion Gap BUN (7-18) mg/dL Creatinine (0.6-1.3) mg/dL Est Cr Clr Drug Dosing mL/min Estimated GFR (MDRD) Glucose (74-105) mg/dL POC Glucose 161 H (83-110) mg/dl Calcium (8.4-10.2) mg/dl Vancomycin Trough 23.2 H (10-15) ug/ml 03/23/17 Range/Units 08:28 WBC (5.0-10.0) 10^3/uL RBC (4.6-6.2) 10^6/uL Hgb (14.0-18.0) g/dL Hct (40.0-54.0) % MCV (80-100) fL MCH (27.0-34.0) pg MCHC (33.0-35.0) g/dL Plt Count (150-450) 10^3/uL Neut % (Auto) (42.2-75.2) % Lymph % (Auto) (20.5-50.1) % [place] % (Auto) (2-8) % Eos % (Auto) (1.0-3.0) % Baso % (Auto) (0.0-1.0) % Sodium 137 (135-145) mmol/L Potassium 4.0 (3.6-5.0) mmol/L Chloride 105 (101-111) mmol/L Carbon Dioxide 24.0 (21.0-31.0) mmol/L Anion Gap 12.0 BUN 21 H (7-18) mg/dL Creatinine 1.1 (0.6-1.3) mg/dL Est Cr Clr Drug Dosing 73.86 mL/min Estimated GFR (MDRD) > 60 Glucose 158 H (74-105) mg/dL POC Glucose (83-110) mg/dl Calcium 8.5 (8.4-10.2) mg/dl Vancomycin Trough (10-15) ug/ml [place] Results Last 24 Hours: Microbiology 03/21/17 18:30 Wound Culture - Preliminary Ankle, Right 03/21/17 18:14 Aerobic Blood Culture - Preliminary Blood - Venous - Lab Draw NO GROWTH AFTER 1 DAY Anaerobic Blood Culture - Preliminary NO GROWTH AFTER 1 DAY 03/21/17 18:10 Aerobic Blood Culture - Preliminary Blood - Venous NO GROWTH AFTER 1 DAY Anaerobic Blood Culture - Preliminary NO GROWTH AFTER 1 DAY Med Orders - Current: Current Medications Acetaminophen (Tylenol) 650 mg PO Q4H PRN PRN Reason: Pain (Mild 1-3)/fever Hydrocodone Bitart/Acetaminophen ([place] 325-10 Mg) 1 tab PO Q4H PRN PRN Reason: Pain (moderate 4-6) Last Admin: 03/22/17 21:08 Dose: 1 tab Aspirin (Halfprin) 81 mg PO 1800 [facility] Last Admin: 03/22/17 17:22 Dose: 81 mg Atorvastatin Calcium (Lipitor) 20 mg PO 1800 [facility] Last Admin: 03/22/17 17:22 Dose: 20 mg Docusate Sodium (Colace) 100 mg PO BID PRN PRN Reason: Constipation Heparin Sodium (Porcine) (Heparin Sodium) 5,000 units SUBCUT Q8HR [facility] Last Admin: 03/23/17 05:38 Dose: 5,000 units Piperacillin Sod/Tazobactam (Sod 2.25 gm/ Sodium Chloride) 50 mls @ 100 mls/hr IV Q6H [facility] Last Infusion: 03/23/17 06:26 Dose: Infused Vancomycin HCl 1.75 gm/ Sodium (Chloride) 500 mls @ 250 mls/hr IV Q12H [facility] Last Admin: 03/22/17 21:08 Dose: 250 mls/hr Insulin Aspart (Novolog) 0 unit SUBCUT TIDAC [facility] PRN Reason: Protocol Last Admin: 03/23/17 09:29 Dose: 2 units Ondansetron HCl (Zofran) 4 mg IVPUSH Q6H PRN PRN Reason: Nausea/Vomiting Vancomycin HCl (Pharmacy To Dose - Vancomycin) 1 dose .XX ASDIRECTED [facility] Zolpidem Tartrate (Ambien) 5 mg PO BEDTIME PRN PRN Reason: Sleep Last Admin: 03/22/17 21:08 Dose: 5 mg Discontinued Medications Vancomycin HCl 1.75 gm/ Sodium (Chloride) 500 mls @ 250 mls/hr IV ONETIME ONE Stop: 03/21/17 21:59 Last Admin: 03/21/17 20:30 Dose: 250 mls/hr Sodium Chloride (Normal Saline) 1,000 mls @ 75 mls/hr IV ASDIRECTED [facility] Last Admin: 03/22/17 11:06 Dose: 75 mls/hr - Exam General: Alert, Oriented Physical Findings Comments:: Right LE: multiple areas of ulceration present to ankle/lower leg, the main area is lateral ankle which measures approx 6 x 4 cm with granular/fibrotic base , there is an area at the proximal wound that probes deep into kagers triangle and does track proximally up the posterior leg. There is a significant amount of purulent drainage expressed from the area today, overlying skin on the lateral/posterior lower leg appears to have areas of necrotic tissue. There is no soft tissue crepitus present, no areas of gas in soft tissues on xrays. No hemorrhagic bullae present to lower leg. Pulses are minimally palpable to the DP /PT. Cellulitis present to foot and lower leg unchanged from markings from last night. Consult PN Assessment/Plan Problem List Initiated/Reviewed/Updated: Yes Plan: 77 y/o DM II male with right lower extremity cellulitis with multiple ulcerations and deep tracking abscess. I am concerned that the infection has gotten into the fascia plane and is tracking proximally up his leg beyond the area of my scope. I think he needs extensive debridement of this area to prevent further tracking of the infection and am recommending he be transferred to [facility] for ortho consult. Discussed with Dr. Bridges, will transfer to [facility] for further treatment.
[2017-03-23] MEDS: Vancomycin 1.75 GM in Sodium Chloride 0.9% 500 ML IV SCH (11:30)
== END 2017-03-23 10:30 | DRG 603 ==
LOC: DL.MS 16:51 → UNDOADMIN 16:51 → DL.MS 17:42
PROVIDERS: ADMIT Internal Medicine; ATTEND Internal Medicine
DX: L03.115 Cellulitis of right lower limb (principal); N17.9 Acute kidney failure, unspecified; E11.9 Type 2 diabetes mellitus without complications; I10 Essential (primary) hypertension; Z79.84 Long term (current) use of oral hypoglycemic drugs; Z79.82 Long term (current) use of aspirin; Z79.899 Other long term (current) drug therapy; H40.9 Unspecified glaucoma; E78.00 Pure hypercholesterolemia, unspecified; M19.90 Unspecified osteoarthritis, unspecified site; E66.9 Obesity, unspecified; Z68.30 Body mass index [BMI] 30.0-30.9, adult; Z87.891 Personal history of nicotine dependence
CPT/HCPCS: 36415; 73590-RT; 80048; 80202; 82962; 85025; 87040; 87070; 87077; 87186; A9270-GY; J1644; J1815-GY; J2543; J3370; J7030; J7040; J7050

== ENCOUNTER 2019-12-24 08:01 | Day surgery (SDC) | payer MEDICARE, MEDICAID ==
[~2019-12-24 08:01] MED LIST: Acetaminophen 325 MG Tab PO PRN; Cataract Ophth Solution EYELF ONE; Moxifloxacin 0.5% Ophth Soln 3 ML Bottle EYELF ONE; Ondansetron 4 MG/2 ML SDV IVPUSH PRN; Phenylephrine 10% Ophth Soln 5 ML Bot EYELF ONE; Phenylephrine 10% Ophth Soln 5 ML Bot EYELF PRN; Povidone-Iodine 5% Sterile Ophth Soln 30 ML Bottle EYELF ONE; Proparacaine 0.5% Ophth Soln 15 ML Bottle EYELF ONE; Sodium Chloride 0.9% 10 ML Syringe FLUSH PRN; Timolol Maleate 0.5% Ophth Soln 5 ML Bottle EYELF ONE; Tropicamide 1% Ophth Soln 15 ML Bottle EYELF ONE
[2019-12-24] MEDS ORDERED: Sodium Chloride 0.9% 10 ML Syringe IV ONE (08:02)
[2019-12-24] MEDS ORDERED: Midazolam 1 MG/ML 2 ML SDV IV ONE (08:02)
[2019-12-24] MEDS ORDERED: Dexamethasone 4 MG/ML SDV IV ONE (08:02)
[2019-12-24] MEDS ORDERED: Dextrose 5%-0.45% NaCl 1,000 ML IV SCH (08:30)
[2019-12-24] MEDS ORDERED: Chondroitin Sulfate/Hyaluronate Sodium Ophth Inj 0.75 ML Syringe EYELF ONE (09:37)
[2019-12-24] MEDS ORDERED: Balanced Salt Solution Ophth Irrig 500 ML Bottle IOCULAR ONE (09:37)
[2019-12-24] MEDS ORDERED: Lidocaine 1% 30 ML SDV ONE (09:37)
[2019-12-24] MEDS ORDERED: Povidone-Iodine 5% Sterile Ophth Soln 30 ML Bottle EYELF ONE (09:37)
[2019-12-24] MEDS ORDERED: Tetracaine HCl/PF 0.5% 4 ML Bottle EYELF ONE (09:37)
[2019-12-24] MEDS ORDERED: Diclofenac Sodium 0.1% Ophth Soln 5 ML Bottle EYELF ONE (09:38)
[2019-12-24] MEDS ORDERED: Vancomycin 500 MG SDV EYELF ONE (09:38)
[2019-12-24] MEDS ORDERED: Acetylcholine 20 MG/2 ML Intraocular Inj Kit EYELF ONE (09:38)
[2019-12-24] MEDS ORDERED: Chondroitin Sulfate/Hyaluronate Sodium Ophth Inj 0.5 ML Syringe IOCULAR ONE (09:38)
[2019-12-24] MEDS ORDERED: Apraclonidine 0.5% Ophth Soln 5 ML Bot EYELF ONE (09:38)
[2019-12-24] MEDS ORDERED: Dexamethasone/Neomycin/Polymyxin B Ophth Oint 3.5 GM Tube EYELF ONE (09:39)
--- NOTE | 2019-12-25 11:45 | OR ---
DATE: 12/24/2019 PREOPERATIVE DIAGNOSES: 1. Visually significant mixed cataract, left eye. 2. Primary open angle glaucoma, left eye. POSTOPERATIVE DIAGNOSES: 1. Visually significant mixed cataract, left eye. 2. Primary open angle glaucoma, left eye. PROCEDURES PERFORMED: 1. Complex cataract left eye with small pupil/Malyugin ring. 2. IStent, left eye. SURGEON: Joseph Daniels MD. ANESTHESIA: Local MAC. INDICATION: Mr. Newell was seen in the clinic with complaints of blurred vision. Examination revealed visually significant mixed cataract and moderate primary open-angle glaucoma. I explained options, offered cataract surgery, and I explained risks, including, but not limited to, infection, retinal detachment, loss of vision, need for additional surgery, and risks associated with anesthesia including loss of life. We discussed implant options. He has requested a monofocal implant. I recommended surgery with the iStent. OPERATIVE DESCRIPTION: The patient was prepped and draped in a sterile fashion and topical anesthesia was applied. Attention was placed on the operative eye. A sterile lid speculum was placed to allow operative exposure. Paracentesis was made temporal. Intracameral lidocaine was administered. Viscoelastic was injected. A full-thickness corneal incision was made using the trapezoidal blade. Bent needle cystotome was then used to make a small carla in the anterior capsule and a 360-degree curvilinear capsulorrhexis was created. Nucleus was then hydrodissected and hydrodelineated using balanced saline solution. Nucleus was then decompressed centrally and rotated and noted to be free of adhesions. Nucleus was then removed using the phacoemulsification handpiece. Additional viscoelastic was then injected into the capsular bag and the intraocular lens was inserted into the capsular bag. The iStent portion of the procedure was then performed. Following removal of the nucleus and cortex, the irrigation and aspiration handpiece was inserted to remove viscoelastic from the posterior surface of the IOL. Additional viscoelastic was then inserted into the anterior chamber angle directly opposite the corneal incision. Miochol was injected into the nasal iris to promote pupillary contraction. The patient's head was then rotated 35 degrees away from the initial position. The operating microscope was also rotated 35 degrees to achieve the proper orientation. The gonioprism was then placed onto the eye. The iStent was then inserted into the anterior chamber with the right hand and the stent was introduced into the pigmented trabecular meshwork. The stent was advanced beneath the trabecular meshwork until approximately two-thirds of the body was covered and then the stent was released from the insertion device. The stent was then tapped into its final resting position using the insertion device. The device was then reinspected to ensure that it was securely in position. The viscoelastic was aspirated from the anterior chamber. Wound and paracentesis sites were hydrated using balanced saline solution. Vancomycin 0.1 mL was injected into the anterior chamber. Intraocular lens was inspected and noted to be clear and well centered. Postoperative drops were placed and a sterile eye patch and shield were placed over the operative eye. The patient was then transported to the postoperative recovery area having tolerated the procedure well. No complications occurred. [facility] /[id number]
== END 2019-12-24 10:57 | disposition home or self-care (01) ==
LOC: DL.SDS 08:01
PROVIDERS: ATTEND Ophthalmology
DX: E11.36 Type 2 diabetes mellitus with diabetic cataract (principal); H40.1122 Primary open-angle glaucoma, left eye, moderate stage; H25.813 Combined forms of age-related cataract, bilateral; E11.39 Type 2 diabetes mellitus with other diabetic ophthalmic complication; H42 Glaucoma in diseases classified elsewhere; I12.9 Hypertensive chronic kidney disease with stage 1 through stage 4 chronic kidney disease, or unspecified chronic kidney disease; N18.30 Chronic kidney disease, stage 3 unspecified; E66.9 Obesity, unspecified; Z68.38 Body mass index [BMI] 38.0-38.9, adult
CPT/HCPCS: 00142; 66183; 66982; 82962; A9270; C1783; J1100; J2001; J2250; J3370; J7042; V2632

== ENCOUNTER 2019-12-31 07:41 | Day surgery (SDC) | payer MEDICARE, MEDICAID ==
[2019-12-31] MEDS ORDERED: Dexamethasone 4 MG/ML SDV IV ONE (07:42)
[2019-12-31] MEDS ORDERED: Midazolam 1 MG/ML 2 ML SDV IV ONE (07:42)
[2019-12-31] MEDS ORDERED: Sodium Chloride 0.9% 10 ML Syringe IV ONE (07:42)
[2019-12-31] MEDS ORDERED: Phenylephrine 10% Ophth Soln 5 ML Bot EYERT PRN (08:00)
[2019-12-31] MEDS ORDERED: Proparacaine 0.5% Ophth Soln 15 ML Bottle EYERT ONE (08:00)
[2019-12-31] MEDS ORDERED: Phenylephrine 10% Ophth Soln 5 ML Bot EYERT ONE ×2 (08:00→09:21)
[2019-12-31] MEDS ORDERED: Sodium Chloride 0.9% 10 ML Syringe FLUSH PRN (08:00)
[2019-12-31] MEDS ORDERED: Ondansetron 4 MG/2 ML SDV IVPUSH PRN (08:00)
[2019-12-31] MEDS ORDERED: Povidone-Iodine 5% Sterile Ophth Soln 30 ML Bottle EYERT ONE ×2 (08:00→09:21)
[2019-12-31] MEDS ORDERED: Moxifloxacin 0.5% Ophth Soln 3 ML Bottle EYERT ONE (08:00)
[2019-12-31] MEDS ORDERED: Timolol Maleate 0.5% Ophth Soln 5 ML Bottle EYERT ONE (08:00)
[2019-12-31] MEDS ORDERED: Tropicamide 1% Ophth Soln 15 ML Bottle EYERT ONE (08:00)
[2019-12-31] MEDS ORDERED: Cataract Ophth Solution EYERT ONE (08:00)
[2019-12-31] MEDS ORDERED: Acetaminophen 325 MG Tab PO PRN (08:00)
[2019-12-31] MEDS ORDERED: Tetracaine HCl/PF 0.5% 4 ML Bottle EYERT ONE (09:20)
[2019-12-31] MEDS ORDERED: Lidocaine 1% 30 ML SDV ONE (09:21)
[2019-12-31] MEDS ORDERED: Apraclonidine 0.5% Ophth Soln 5 ML Bot EYERT ONE (09:21)
[2019-12-31] MEDS ORDERED: Diclofenac Sodium 0.1% Ophth Soln 5 ML Bottle EYERT ONE (09:21)
[2019-12-31] MEDS ORDERED: Chondroitin Sulfate/Hyaluronate Sodium Ophth Inj 0.5 ML Syringe IOCULAR ONE (09:22)
[2019-12-31] MEDS ORDERED: Acetylcholine 20 MG/2 ML Intraocular Inj Kit EYERT ONE (09:22)
[2019-12-31] MEDS ORDERED: Vancomycin 500 MG SDV EYERT ONE (09:22)
[2019-12-31] MEDS ORDERED: Chondroitin Sulfate/Hyaluronate Sodium Ophth Inj 0.75 ML Syringe EYERT ONE (09:22)
[2019-12-31] MEDS ORDERED: Balanced Salt Solution Ophth Irrig 500 ML Bottle IOCULAR ONE (09:22)
--- NOTE | 2019-12-31 15:41 | OR ---
DATE: 12/31/2019 PREOPERATIVE DIAGNOSES: 1. Visually significant mixed cataract, right eye. 2. Primary open angle glaucoma, right eye. POSTOPERATIVE DIAGNOSES: 1. Visually significant mixed cataract, right eye. 2. Primary open angle glaucoma, right eye. PROCEDURES: 1. Extracapsular cataract extraction with intraocular lens implant. 2. Placement of iStent for glaucoma control. SURGEON: Joseph Daniels MD ANESTHESIA: Local MAC. INDICATION: Mr. Newell was seen in the clinic. His examination revealed visually significant mixed cataract and moderate primary open-angle glaucoma. He is symptomatic with complaints of blurred vision. I explained options, offered cataract surgery and I explained risks, including, but not limited to, infection, retinal detachment, loss of vision, need for additional surgery, and risks associated with anesthesia. We discussed implant options. He has requested a monofocal implant. I recommended surgery with the iStent. OPERATIVE DESCRIPTION: The patient was prepped and draped in a sterile fashion and topical anesthesia was applied. Attention was placed on the operative eye. A sterile lid speculum was placed to allow operative exposure. Paracentesis was made temporal. Intracameral lidocaine was administered. Viscoelastic was injected. A full-thickness corneal incision was made using the trapezoidal blade. Bent needle cystotome was then used to make a small carla in the anterior capsule and a 360-degree curvilinear capsulorrhexis was created. Nucleus was then hydrodissected and hydrodelinated using balanced saline solution. Nucleus was then decompressed centrally and rotated and noted to be free of adhesions. Nucleus was then removed using the phacoemulsification handpiece. Additional viscoelastic was then injected into the capsular bag and the intraocular lens was inserted into the capsular bag. The iStent portion of the procedure was then performed. Following removal of the nucleus and cortex, the irrigation and aspiration handpiece was inserted to remove viscoelastic from the posterior surface of the IOL. Additional viscoelastic was then inserted into the anterior chamber angle directly opposite the corneal incision. Miochol was injected into the nasal iris to promote pupillary contraction. The patient's head was then rotated 35 degrees away from the initial position. The operating microscope was also rotated 35 degrees to achieve the proper orientation. The gonioprism was then placed onto the eye. The iStent was then inserted into the anterior chamber with the right hand and the stent was introduced into the pigmented trabecular meshwork. The stent was advanced beneath the trabecular meshwork until approximately two-thirds of the body was covered and then the stent was released from the insertion device. The stent was then tapped into its final resting position using the insertion device. The device was then reinspected to ensure that it was securely in position. The viscoelastic was aspirated from the anterior chamber. Wound and paracentesis sites were hydrated using balanced saline solution. Vancomycin 0.1 mL was injected into the anterior chamber. Intraocular lens was inspected and noted to be clear and well centered. Postoperative drops were placed and a sterile eye patch and shield were placed over the operative eye. The patient was then transported to the postoperative recovery area having tolerated the procedure well. No complications occurred. [facility] /[id number]
== END 2019-12-31 11:50 | disposition home or self-care (01) ==
LOC: DL.SDS 07:41
PROVIDERS: ATTEND Ophthalmology
DX: H40.1112 Primary open-angle glaucoma, right eye, moderate stage (principal); E11.36 Type 2 diabetes mellitus with diabetic cataract; E11.39 Type 2 diabetes mellitus with other diabetic ophthalmic complication; H42 Glaucoma in diseases classified elsewhere; H25.811 Combined forms of age-related cataract, right eye; I12.9 Hypertensive chronic kidney disease with stage 1 through stage 4 chronic kidney disease, or unspecified chronic kidney disease; N18.30 Chronic kidney disease, stage 3 unspecified; E11.22 Type 2 diabetes mellitus with diabetic chronic kidney disease; E78.5 Hyperlipidemia, unspecified; D63.1 Anemia in chronic kidney disease
CPT/HCPCS: 66183; 66984; 82962; C1783; J1100; J2001; J2250; J3370; V2632

== ENCOUNTER 2020-04-24 14:37 | Emergency (ER) | payer MEDICARE, MEDICAID ==
--- NOTE | 2020-04-24 15:25 | EDM.PDOC ---
ED HPI GENERAL MEDICAL PROBLEM - General Chief Complaint: Gastrointestinal Problem Stated Complaint: ACUTE ANEMIA Time Seen by Provider: 04/24/20 15:16 Source of Information: Reports: Patient, Provider History Limitations: Reports: No Limitations - History of Present Illness INITIAL COMMENTS - FREE TEXT/NARRATIVE: This 80 yo male patient was sent to the emergency department from [facility] due to increased fatigue, a hemoglobin of 4.4 and dark black stools. The patient reports he has had some abdominal pain for the past 2 days and very dark bowel movements. [facility]. The patient denies any recent falls or trauma. The patient denies any history of GI bleeding or problems. The patient did have a negative rapid COVID test done today at [facility] Duration: Day(s):, Constant, Getting Worse Location: Reports: Abdomen Quality: Reports: Other Severity: Moderate Improves with: Reports: None Worsens with: Reports: None Context: Reports: Other Associated Symptoms: Reports: No Other Symptoms - Related Data Allergies Allergy/AdvReac Type Severity Reaction Status Date / Time No Known Allergies Allergy Verified 04/24/20 14:46 Home Meds: Home Meds Aspirin [Halfprin] 81 mg PO DAILY 03/21/17 [History] Acetaminophen [Tylenol] 650 mg PO Q4H PRN tablet 03/23/17 [Rx] Albuterol Sulfate [Albuterol Sulfate Hfa] 1 dose NEB BID 10/24/19 [History] Furosemide 20 mg PO DAILY 10/24/19 [History] Gabapentin [Neurontin] 100 mg PO BID 10/24/19 [History] Glimepiride 6 mg PO DAILY 10/24/19 [History] Insulin Aspart [NovoLOG] 6 - 8 unit SUBCUT TIDAC 10/24/19 [History] Insulin Detemir [Levemir] 16 units INJECT DAILY 10/24/19 [History] Metoprolol Tartrate 25 mg PO BID 10/24/19 [History] Simvastatin 20 mg PO DAILY 10/24/19 [History] amLODIPine Besylate [Amlodipine Besylate] 10 mg PO DAILY 10/24/19 [History] oxyCODONE HCl [Oxycodone HCl] 5 mg PO TID 10/24/19 [History] Latanoprost [Xalatan 0.005% Ophth Soln] 1 drop EYEBOTH ASDIRECTED 12/23/19 [History] Magnesium Hydroxide [Milk of Magnesia] 10 ml PO ASDIRECTED 12/23/19 [History] Arginine/Ascorbate Sod/Jonathan AC [Arginaid Powder] 8 oz PO BID 12/24/19 [History] oxyCODONE 5 mg PO Q6H PRN 04/24/20 [History] Past Medical History HEENT History: Reports: Cataract, Glaucoma, Other (See Below) Other HEENT History: presbyopia; astigmatism; hypermetropia; Cardiovascular History: Reports: High Cholesterol, Hypertension, Other (See Below) Other Cardiovascular History: ASHD. PERIPHERAL VASCULAR DISEASE Respiratory History: Reports: None Gastrointestinal History: Reports: Chronic Constipation Genitourinary History: Reports: None Musculoskeletal History: Reports: Arthritis, Osteoarthritis Neurological History: Reports: None Psychiatric History: Reports: None Endocrine/Metabolic History: Reports: Diabetes, Type II, Obesity/BMI 30+ Hematologic History: Reports: Anemia Immunologic History: Reports: None Oncologic (Cancer) History: Reports: None Dermatologic History: Reports: Cellulitis - Infectious Disease History Infectious Disease History: Reports: MRSA - Past Surgical History HEENT Surgical History: Reports: Cataract Surgery Cardiovascular Surgical History: Reports: None Respiratory Surgical History: Reports: None GI Surgical History: Reports: None Male Surgical History: Reports: None Neurological Surgical History: Reports: None Social & Family History - Family History Family Medical History: Unobtainable - Caffeine Use Caffeine Use: Reports: Coffee ED ROS GENERAL - Review of Systems Review Of Systems: Comprehensive ROS is negative, except as noted in HPI. ED EXAM, GENERAL - Physical Exam Exam: See Below Exam Limited By: No Limitations General Appearance: Alert, WD/WN, Moderate Distress Eye Exam: Bilateral Eye: EOMI, Normal Inspection, PERRL Ears: Normal External Exam, Normal Canal, Hearing Grossly Normal, Normal TMs Nose: Normal Inspection, Normal Mucosa, No Blood Throat/Mouth: Normal Inspection, Normal Lips, Normal Teeth, Normal Gums, Normal Oropharynx, Normal Voice, No Airway Compromise Head: Atraumatic, Normocephalic Neck: Normal Inspection, Supple, Non-Tender, Full Range of Motion Respiratory/Chest: No Respiratory Distress, Lungs Clear, Normal Breath Sounds, No Accessory Muscle Use, Chest Non-Tender Cardiovascular: Normal Peripheral Pulses, Regular Rate, Rhythm, No Edema, No Gallop, No JVD, No Murmur, No Rub GI/Abdominal: Normal Bowel Sounds, Tender (throughout the abdomen) (Male) Exam: Deferred Rectal (Males) Exam: Deferred, Black Stool, Heme + Stool Back Exam: Normal Inspection, Full Range of Motion, NT Extremities: Normal Inspection, Normal Range of Motion, Non-Tender, Normal Capillary Refill, No Pedal Edema Neurological: Alert, Oriented, CN II-XII Intact, Normal Cognition, Normal Gait, Normal Reflexes, No Motor/Sensory Deficits Psychiatric: Normal Affect, Normal Mood Skin Exam: Warm, Dry, Intact, No Rash, Pallor Lymphatic: No Adenopathy Course - Vital Signs Last Recorded V/S: Last Vital Signs Temp 35.9 C L 04/24/20 16:01 Pulse 70 04/24/20 16:01 Resp 24 H 04/24/20 16:01 BP 128/44 L 04/24/20 16:01 Pulse Ox 100 04/24/20 15:15 - Orders/Labs/Meds Orders: Active Orders 24 hr Category Date Time Status EKG Documentation Completion [RC] STAT Care 04/24/20 15:14 Ordered COMPREHENSIVE METABOLIC PN,CMP [CHEM] Stat Lab 04/24/20 16:11 Ordered RED BLOOD CELLS LP [BBK] Stat Lab 04/24/20 13:30 Received TROPONIN I [CHEM] Stat Lab 04/24/20 16:11 Ordered TYPE AND SCREEN [BBK] Stat Lab 04/24/20 13:30 Received Labs: Laboratory Tests 04/24/20 Range/Units 13:30 Blood Type O POSITIVE Gel Antibody Screen Negative Crossmatch See Detail Meds: Medications Discontinued Medications Generic Name Dose Route Start Last Admin Trade Name Anne PRN Reason Stop Dose Admin Calcium Gluconate 1 gm 04/24/20 16:10 Calcium Gluconate IVPUSH 04/24/20 16:11 ONETIME ONE Departure - Departure Time of Disposition: 16:20 Disposition: DC/Tfer to Acute Hospital 02 Condition: Poor Clinical Impression: Hyperkalemia GI bleed Qualifiers: GI bleed type/associated pathology: unspecified gastrointestinal hemorrhage type Qualified Code(s): K92.2 - Gastrointestinal hemorrhage, unspecified Chronic renal failure Qualifiers: Chronic kidney disease stage: unspecified stage Qualified Code(s): N18.9 - Chronic kidney disease, unspecified - Discharge Information *PRESCRIPTION DRUG MONITORING PROGRAM REVIEWED*: Not Applicable *COPY OF PRESCRIPTION DRUG MONITORING REPORT IN PATIENT JULISA: Not Applicable Forms: Interfacility Transfer EMTALA Care Plan Goals: Discussed the patient's history, examination, EKG and lab results with Dr. Sloan. Dr. Sloan accepted the patient for continued evaluation and further treatment. The patient will be transported by [facility]. Sepsis Event Note (ED) - Focused Exam Vital Signs: Vital Signs Temp Temp Pulse Resp BP Pulse Ox 04/24/20 16:01 35.9 C L 70 24 H 128/44 L 04/24/20 15:40 35.8 C L 65 22 H 128/63 04/24/20 15:15 35.8 C L 68 27 H 119/57 L 100 - My Orders Last 24 Hours: My Active Orders 04/24/20 13:30 RED BLOOD CELLS LP [BBK] Stat TYPE AND SCREEN [BBK] Stat 04/24/20 15:14 EKG Documentation Completion [RC] STAT 04/24/20 16:11 COMPREHENSIVE METABOLIC PN,CMP [CHEM] Stat TROPONIN I [CHEM] Stat - Assessment/Plan Last 24 Hours: My Active Orders 04/24/20 13:30 RED BLOOD CELLS LP [BBK] Stat TYPE AND SCREEN [BBK] Stat 04/24/20 15:14 EKG Documentation Completion [RC] STAT 04/24/20 16:11 COMPREHENSIVE METABOLIC PN,CMP [CHEM] Stat TROPONIN I [CHEM] Stat
--- NOTE | 2020-04-24 15:26 | PCM.SN.2 ---
- Free Text/Narrative Note: Roni Newell is a 80-year-old male who is a resident of [facility]. I received a call from nursing at 12:51 PM stating that Roni was somewhat lethargic with no other specific complaints. Vital signs: 109/50. HR 63. RR 63. Ox Sat 96% RA. Temp 98.1. Bood sugar 120, 147. Labs were sent to the hospital lab. Hgb/Hct critically low at 4.4 and 14.4, BUN/creat 96 and 2.01. Potassium 6.9. Mr. Newell is being sent to the ER for further evaluation. Two units of blood were ordered by me prior to his arrival in the ER. Nursing later said that a nurse's aide noted "black" stools this morning but did not inform the charge nurse. PMH: Diabetes, type 2. Peripheral vascular disease. Chronic LE cellulitis. CKD- 3. Anemia (last H/H 9.5 and 30.8 in January). Diabetic neuropathy. Glaucoma. Hypertension. Dyslipidemia. Impression: Acute anemia, most likely gastrointestinal. THERE IS NO PREVIOUS HISTORY OF A GASTROINTESTINAL BLEED. Case discussed with ER Provider. Chris Berumen MD
[2020-04-24] MEDS ORDERED: Calcium Gluconate 10% 1 GM/10 ML SDV IVPUSH ONE (16:10)
[2020-04-24 16:53] LABS: CHLORIDE,CL 111 mmol/L (98-107); SODIUM,NA 143 mmol/L (136-145)
== END 2020-04-24 17:04 ==
LOC: DL.ED 14:37
DX: K92.2 Gastrointestinal hemorrhage, unspecified (principal); E87.5 Hyperkalemia; I12.9 Hypertensive chronic kidney disease with stage 1 through stage 4 chronic kidney disease, or unspecified chronic kidney disease; E11.22 Type 2 diabetes mellitus with diabetic chronic kidney disease; N18.9 Chronic kidney disease, unspecified; D63.1 Anemia in chronic kidney disease; E11.51 Type 2 diabetes mellitus with diabetic peripheral angiopathy without gangrene; E78.00 Pure hypercholesterolemia, unspecified; M19.90 Unspecified osteoarthritis, unspecified site; E66.9 Obesity, unspecified; Z79.82 Long term (current) use of aspirin; Z79.4 Long term (current) use of insulin; Z79.899 Other long term (current) drug therapy
CPT/HCPCS: 36415; 36430; 80053; 82272; 84484; 86850; 86900; 86901; 86920; 86922; 93005; 96374; 99284; 99285; J0610; P9016